=== PATIENT | female | born 1990 | race Caucasian/White ===

== ENCOUNTER 2024-11-23 16:20 | Emergency (ER) | payer OTHER ==
[~2024-11-23] VITALS: Ht 165.1 cm; Wt 113.4 kg
[2024-11-23 17:38] VITALS: TEMP 98.3
[2024-11-23 18:14] LABS: BASOPHILS % 0.3 % (0.0-1.0); EOSINOPHILS % 0.9 % (0.0-6.0); LYMPHOCYTES % 23.4 % (18.0-39.1); MONOCYTES % 7.1 % (4.4-11.3); NEUTROPHILS % 68.0 % (38.7-80.0); RED CELL DISTRIBUTION WIDTH 15.5 % (11.7-14.4)
[2024-11-23 18:38] LABS: EST GLOMERULAR FILTRATION RATE 108.0 ML/MIN (>=60)
[2024-11-23 19:24] LABS: LEUKOCYTE ESTERASE ,URINE NEGATIVE (NEGATIVE); PROTEIN,URINE DIPSTICK NEGATIVE (NEGATIVE); URINE UROBILINOGEN 0.2 mg/dL (0.2 - 1)
[2024-11-23 19:40] LABS: EPITHELIAL CELLS,URINE MANY /LPF; WBC,URINE (MAN) 0-5 /HPF (0-5)
[2024-11-23 19:47] LABS: PREGNANCY TEST, URINE NEGATIVE (NEGATIVE)
[2024-11-23] MEDS ORDERED: SODIUM CHLORIDE 0.9% 1000ML 1,000 ML ONE (19:50)
[2024-11-23] MEDS ORDERED: ONDANSETRON HCL INJ 2MG/ML 2ML 2 MG/ML VIAL ONE (19:50)
[2024-11-23] MEDS: KETOROLAC TROMETHAMINE 30 MG/ML VIAL IV STA (19:56)
[2024-11-23] MEDS: SODIUM CHLORIDE 0.9% 1000ML 1,000 ML IV STA (19:56)
[2024-11-23] MEDS: ONDANSETRON HCL INJ 2MG/ML 2ML 2 MG/ML VIAL IV STA (19:57)
[2024-11-23] MEDS ORDERED: IOPAMIDOL 370 MG/ML 100 ML INFUS..BTL INJ ONE (20:03)
[2024-11-23] MEDS: DICYCLOMINE HCL 20 MG TAB PO STA (22:33)
[2024-11-23] MEDS ORDERED: DICYCLOMINE HCL10 MG PO (22:43)
[2024-11-23 22:46] LABS: AMPHETAMINES SCREEN,URINE NEGATIVE (NEGATIVE); CANNABINOIDS SCREEN,URINE NEGATIVE (NEGATIVE); COCAINE SCREEN,URINE NEGATIVE (NEGATIVE); METHADONE SCREEN, URINE NEGATIVE (NEGATIVE); OPIATES SCREEN,URINE NEGATIVE (NEGATIVE)
[2024-11-23 23:17] VITALS: PULSE 68; RESP 20
[2024-11-23 23:21] VITALS: BP 118/85; RESP 20; O2SAT 100
== END 2024-11-23 23:19 | disposition home or self-care (01) ==
LOC: ER 17:35
DX: R10.30 Lower abdominal pain, unspecified (principal); D25.9 Leiomyoma of uterus, unspecified; E28.2 Polycystic ovarian syndrome; Z87.19 Personal history of other diseases of the digestive system
CPT/HCPCS: 36415; 74177; 80053; 80307; 81001; 81025; 83690; 85025; 99284; J1885; J2405; J7030; Q9967